=== PATIENT | female | born 1970 | race Caucasian/White ===

== ENCOUNTER 2020-01-29 12:04 | Outpatient (CLI) | payer OTHER | END 2020-01-29 12:06 | disposition home or self-care (01) | LOC: MAMO-SONO 12:04 | PROVIDERS: ATTEND General Practice | DX: Z12.31 Encounter for screening mammogram for malignant neoplasm of breast (principal); N64.4 Mastodynia ==

== ENCOUNTER 2025-04-05 07:57 | Emergency (ER) | payer OTHER ==
[~2025-04-05] VITALS: Ht 170.2 cm; Wt 63.5 kg
[2025-04-05] MEDS ORDERED: GUAIFENESIN/DEXTROMETHORPHAN 100MG/10ML BLIST.PACK PO ONE (08:30)
[2025-04-05] MEDS ORDERED: BENZONATATE 100 MG CAPSULE PO ONE (08:30)
[2025-04-05] MEDS ORDERED: IPRATROPIUM BROMIDE 0.5 MG/2.5 ML AMPUL.NEB IH SCH (08:30)
[2025-04-05] MEDS ORDERED: CETIRIZINE HCL 5MG/5ML BLIST.PACK PO ONE ×2 (08:38→08:45)
[2025-04-05 09:52] LABS: COVID-19 AG NEGATIVE (NEGATIVE)
[2025-04-05] MEDS ORDERED: IPRATROPIUM BROMIDE 0.5 MG/2.5 ML AMPUL.NEB IH ONE (10:07)
[2025-04-05] MEDS ORDERED: ZITHROMAX TRI-500 MG PO (10:57)
[2025-04-05] MEDS ORDERED: TUSSI-PRES LIQU10 ML PO (10:57)
== END 2025-04-05 11:36 | disposition home or self-care (01) ==
LOC: ER 07:57
PROVIDERS: Student in an Organized Health Care Education/Training Program
DX: J20.9 Acute bronchitis, unspecified (principal); F17.200 Nicotine dependence, unspecified, uncomplicated; Z20.822 Contact with and (suspected) exposure to COVID-19